=== PATIENT | male | born 1990 | race Caucasian/White ===

== ENCOUNTER 2020-03-05 11:40 | Emergency (ER) | payer OTHER ==
[~2020-03-05] VITALS: Ht 182.9 cm; Wt 87.0 kg
[2020-03-05 11:45] VITALS: BP 142/89
[2020-03-05] MEDS ORDERED: PROPARACAINE OPHTH 0.5%, 15ML ONE (11:50)
[2020-03-05] MEDS ORDERED: FLUORESCEIN OPHTHALMIC 1 MG STRIP ONE (11:50)
[2020-03-05] MEDS ORDERED: ONDANSETRON ODT 4 MG PO ONE (12:30)
[2020-03-05] MEDS ORDERED: HYDROcodone/APAP 5/325 TABLET PO ONE (12:30)
[2020-03-05] MEDS ORDERED: ONDANSETRON ODT 4 MG ONE (12:49)
[2020-03-05] MEDS ORDERED: HYDROcodone/APAP 5/325 TABLET ONE (12:49)
--- NOTE | 2020-03-05 12:53 | NUR ---
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
--- NOTE | 2020-03-05 12:56 | NUR ---
AT BEDSIDE FOR ASSESSMENT.
[2020-03-05] MEDS ORDERED: PLEASE ENTER ALLERGIES MC SCH (13:00)
--- NOTE | 2020-03-05 13:00 | NUR ---
OPTHOMOLOGY TO CONSULT
--- NOTE | 2020-03-05 13:40 | NUR ---
OPTHO AT BEDSIDE.
== END 2020-03-05 14:35 | disposition home or self-care (01) ==
LOC: ED 12:10
DX: H57.11 Ocular pain, right eye (principal); H53.141 Visual discomfort, right eye
CPT/HCPCS: 99283; Q0162